=== PATIENT | female | born 1945 | race Two or more races ===

== ENCOUNTER 2020-11-23 00:18 | Inpatient (IN) | payer OTHER ==
[~2020-11-23] VITALS: Ht 167.6 cm; Wt 70.2 kg
[2020-11-23] MEDS ORDERED: MORPHINE SULFATE 4 MG/ML SYR/VIAL IV ONE ×3 (01:00→08:45)
[2020-11-23] MEDS ORDERED: ONDANSETRON HCL 4 MG/2 ML VIAL IV ONE ×3 (01:00→08:45)
[2020-11-23] MEDS ORDERED: LORazepam 0.5 MG TAB PO ONE (08:00)
[2020-11-23] MEDS ORDERED: CLIN-188 PO (08:48)
[2020-11-23] MEDS ORDERED: ALEN70TA74 PO (08:48)
[2020-11-23] MEDS ORDERED: AMLO-483 PO (08:48)
[2020-11-23] MEDS ORDERED: ROSU1TAB13 PO (08:48)
[2020-11-23] MEDS ORDERED: SULF800T8 (08:48)
[2020-11-23] MEDS ORDERED: LISI-716 PO (08:48)
[2020-11-23] MEDS ORDERED: OMEP-260 PO (08:48)
[2020-11-23 09:08] LABS: Basophils # (auto) 0.1 10 ^3/uL (0-0.2); Basophils % (auto) 0.5 % (0.0-2.0); Eosinophils # (auto) 0 10 ^3/uL (0-0.8); Hematocrit 37.7 % (36.0-46.0); Hemoglobin 12.7 g/dL (12.2-16.2); Lymphocytes # (auto) 0.6 10 ^3/uL (0.4-5.4); Lymphocytes % (auto) 4.3 % (10.0-50.0); Mean Corpuscular Hemoglobin 30.6 pg (28.0-32.0); Mean Corpuscular Hgb Conc. 33.7 g/dL (32.0-36.0); Mean Corpuscular Volume 90.7 fL (80.0-100.0); Monocytes # (auto) 0.5 10 ^3/uL (0-1.3); Monocytes % (auto) 3.8 % (0.0-12.0); Neutrophils # (auto) 12.3 10 ^3/uL (1.6-8.6); Neutrophils % (auto) 91.4 % (37.0-80.0); Nucleated Red Blood Cells % 0.1 %; Red Blood Cells 4.16 10^6/uL (4.0-5.20); White Blood Cell 13.4 10^3/uL (4.4-10.8)
[2020-11-23 09:24] LABS: Albumin 3.6 g/dL (3.4-5.0); Calcium 8.2 mg/dL (8.5-10.1); Potassium 3.8 mmol/L (3.5-5.1)
[2020-11-23 09:25] LABS: INR 1.03 (0.9-1.15); Partial Thromboplastin Time 27.5 sec (23.0-31.2)
[2020-11-23 09:28] LABS: BUN/Creatinine Ratio 27.7; Bilirubin, Total 0.9 mg/dL (0.2-1.0); Total Protein 6.7 g/dL (6.4-8.2)
[2020-11-23] MEDS ORDERED: ACETAMINOPHEN 500 MG TAB PO PRN (10:00)
[2020-11-23] MEDS ORDERED: hydrALAZINE HCL 20 MG/ML VL IV PRN (10:00)
[2020-11-23] MEDS ORDERED: ATORVASTATIN 20 MG TAB PO SCH (10:00)
[2020-11-23] MEDS ORDERED: MORPHINE SULFATE INJECTION 2 MG/ML SYRG IV PRN (10:00)
[2020-11-23] MEDS ORDERED: NITROGLYCERIN 0.4 MG SL TAB SL PRN (10:00)
[2020-11-23 10:07] LABS: Urine Bacteria NONE SEEN /hpf (None Seen); Urine Blood 2+ /uL (Negative); Urine Hyaline Cast FEW /lpf (0 - 2); Urine Specific Gravity 1.024 (1.001-1.035); Urine WBC 3 /hpf (0 - 5)
[2020-11-23 10:22] LABS: Cholesterol 150 mg/dL (< 200); HDL Cholesterol 50 mg/dL (40-59); LDL Cholesterol 81 mg/dL (< 100); Triglycerides 110 mg/dL (< 150)
[2020-11-23] MEDS: levoFLOXacin 500MG 100 ML IV SCH (10:32)
[2020-11-23] MEDS: HYDROcodone-ACET 5/325MG TAB PO PRN (10:33)
[2020-11-23] MEDS: LISINOPRIL 10 MG TAB PO SCH (10:33)
[2020-11-23] MEDS: FAMOTIDINE 20 MG TAB PO SCH (10:34)
[2020-11-23] MEDS: CLINDAMYCIN 300MG IV 50 ML IV SCH ×2 (11:45→20:43)
[2020-11-23] MEDS: ONDANSETRON HCL 4 MG/2 ML VIAL IV PRN ×2 (15:05→22:45)
[2020-11-23] MEDS: HYDROmorphone HCL 2 MG/ML VL IV PRN ×2 (15:06→22:46)
[2020-11-23 15:15] VITALS: BP 112/58
[2020-11-23 15:30] VITALS: BP 112/89
[2020-11-23 17:54] VITALS: BP 112/59
[2020-11-23] MEDS: ATORVASTATIN 20 MG TAB PO SCH (20:43)
[2020-11-23 22:00] VITALS: BP 107/59
[2020-11-24] MEDS: CLINDAMYCIN 300MG IV 50 ML IV SCH ×3 (02:52→18:12)
[2020-11-24] MEDS: HYDROmorphone HCL 2 MG/ML VL IV PRN ×4 (03:15→17:57)
[2020-11-24 05:00] VITALS: BP 103/57
[2020-11-24] MEDS: HYDROcodone-ACET 5/325MG TAB PO PRN (06:50)
[2020-11-24] MEDS: ONDANSETRON HCL 4 MG/2 ML VIAL IV PRN (08:11)
[2020-11-24 09:00] VITALS: BP 109/59
[2020-11-24] MEDS ORDERED: ENOXAPARIN SOD 40 MG/0.4 ML SYRINGE SC ONE (10:15)
[2020-11-24] MEDS: FAMOTIDINE 20 MG TAB PO SCH (10:34)
[2020-11-24] MEDS: levoFLOXacin 500MG 100 ML IV SCH (10:34)
[2020-11-24] MEDS: LISINOPRIL 10 MG TAB PO SCH (10:35)
[2020-11-24 17:20] VITALS: BP 109/56
[2020-11-24] MEDS: OXYCODONE W/ ACETAMINOPHEN 5/325MG TABLET PO PRN (20:02)
[2020-11-24] MEDS: ATORVASTATIN 20 MG TAB PO SCH (21:29)
[2020-11-24 22:00] VITALS: BP 122/62
[2020-11-25] MEDS: CLINDAMYCIN 300MG IV 50 ML IV SCH ×3 (02:29→18:40)
[2020-11-25] MEDS: HYDROmorphone HCL 2 MG/ML VL IV PRN ×3 (04:40→19:01)
[2020-11-25 05:00] VITALS: BP 110/68
[2020-11-25] MEDS: OXYCODONE W/ ACETAMINOPHEN 5/325MG TABLET PO PRN ×2 (07:28→17:43)
[2020-11-25 07:40] LABS: Basophils # (auto) 0 10 ^3/uL (0-0.2); Basophils % (auto) 0.3 % (0.0-2.0); Eosinophils # (auto) 0 10 ^3/uL (0-0.8); Eosinophils % (auto) 0.1 % (0.0-7.0); Hematocrit 34.3 % (36.0-46.0); Hemoglobin 11.9 g/dL (12.2-16.2); Lymphocytes # (auto) 1.1 10 ^3/uL (0.4-5.4); Lymphocytes % (auto) 9.4 % (10.0-50.0); Mean Corpuscular Hemoglobin 31.2 pg (28.0-32.0); Mean Corpuscular Hgb Conc. 34.6 g/dL (32.0-36.0); Monocytes # (auto) 0.9 10 ^3/uL (0-1.3); Monocytes % (auto) 7.3 % (0.0-12.0); Neutrophils % (auto) 82.9 % (37.0-80.0); Red Blood Cells 3.81 10^6/uL (4.0-5.20); Red Cell Distribution Width 13.3 % (11.8-14.3)
[2020-11-25 07:52] LABS: BUN/Creatinine Ratio 22.4; Calcium 7.8 mg/dL (8.5-10.1); Magnesium 2.4 mg/dL (1.6-2.6); Potassium 3.7 mmol/L (3.5-5.1)
[2020-11-25] MEDS: levoFLOXacin 500MG 100 ML IV SCH (10:15)
[2020-11-25] MEDS: FAMOTIDINE 20 MG TAB PO SCH (10:15)
[2020-11-25] MEDS: ENOXAPARIN SOD 40 MG/0.4 ML SYRINGE SC SCH (10:16)
[2020-11-25] MEDS: LISINOPRIL 10 MG TAB PO SCH (10:16)
[2020-11-25 13:00] VITALS: BP 113/59
[2020-11-25 17:00] VITALS: BP 120/65
[2020-11-25] MEDS: ATORVASTATIN 20 MG TAB PO SCH (21:23)
[2020-11-25 22:00] VITALS: BP 109/70
[2020-11-26] MEDS: HYDROmorphone HCL 2 MG/ML VL IV PRN ×4 (01:39→19:32)
[2020-11-26] MEDS: CLINDAMYCIN 300MG IV 50 ML IV SCH ×2 (03:26→10:59)
[2020-11-26] MEDS: OXYCODONE W/ ACETAMINOPHEN 5/325MG TABLET PO PRN ×3 (04:33→17:27)
[2020-11-26 05:00] VITALS: BP 123/74
[2020-11-26] MEDS ORDERED: FLEET ENEMA(ADULT) 135 ML PR ONE (08:00)
[2020-11-26] MEDS ORDERED: LACTULOSE 20Gm/30ML SOLN PO ONE (08:00)
[2020-11-26 08:30] VITALS: BP 132/69
[2020-11-26] MEDS: levoFLOXacin 500MG 100 ML IV SCH (08:46)
[2020-11-26] MEDS: FAMOTIDINE 20 MG TAB PO SCH (08:55)
[2020-11-26] MEDS: ENOXAPARIN SOD 40 MG/0.4 ML SYRINGE SC SCH (08:55)
[2020-11-26] MEDS: LISINOPRIL 10 MG TAB PO SCH (08:58)
[2020-11-26] MEDS ORDERED: DOCUSATE SOD 100 MG CAP PO SCH (10:00)
[2020-11-26 12:30] VITALS: BP 125/68
[2020-11-26 17:00] VITALS: BP 132/71
[2020-11-27] MEDS ORDERED: LACTULOSE 20Gm/30ML SOLN PO SCH (10:00)
== END 2020-11-26 19:40 | disposition short-term general hospital (02) | DRG 536 ==
LOC: EDBD 00:18 → ER 00:20 → TELE 09:51 → TELE-EAST 15:02
PROVIDERS: ADMIT Nurse Practitioner Acute Care; ATTEND Internal Medicine Geriatric Medicine
DX: S32.401A Unspecified fracture of right acetabulum, initial encounter for closed fracture (principal); S32.591A Other specified fracture of right pubis, initial encounter for closed fracture; I10 Essential (primary) hypertension; M81.0 Age-related osteoporosis without current pathological fracture; D72.829 Elevated white blood cell count, unspecified; E78.5 Hyperlipidemia, unspecified; K59.00 Constipation, unspecified; M19.90 Unspecified osteoarthritis, unspecified site; Z20.822 Contact with and (suspected) exposure to COVID-19; W18.39XA Other fall on same level, initial encounter; Y93.89 Activity, other specified; Z88.0 Allergy status to penicillin; Y92.89 Other specified places as the place of occurrence of the external cause; Y99.8 Other external cause status
CPT/HCPCS: 36415; 71045; 72192; 73502; 80048; 80053; 80061; 81001; 83735; 84443; 85025; 85610; 85730; 86850; 86900; 86901; 87040; 87426; 93005; 96365; 96375; 96376; G0378; J1956; J2405; J3490

== ENCOUNTER 2021-01-03 23:40 | Inpatient (IN) | payer OTHER ==
[~2021-01-03] VITALS: Ht 167.6 cm; Wt 68.0 kg
[~2021-01-03 23:40] MED LIST: ALEN70TA74 PO; AMLO-483 PO; CLIN-188 PO; LISI-716 PO; OMEP-260 PO; ROSU1TAB13 PO; SULF800T8
[2021-01-04 01:02] LABS: Basophils # (auto) 0 10 ^3/uL (0-0.2); Basophils % (auto) 0.4 % (0.0-2.0); Eosinophils # (auto) 0.5 10 ^3/uL (0-0.8); Eosinophils % (auto) 4.8 % (0.0-7.0); Hematocrit 29.9 % (36.0-46.0); Hemoglobin 10.6 g/dL (12.2-16.2); Lymphocytes # (auto) 1.3 10 ^3/uL (0.4-5.4); Mean Corpuscular Hemoglobin 31.9 pg (28.0-32.0); Mean Corpuscular Hgb Conc. 35.3 g/dL (32.0-36.0); Mean Corpuscular Volume 90.4 fL (80.0-100.0); Monocytes # (auto) 1.2 10 ^3/uL (0-1.3); Monocytes % (auto) 10.4 % (0.0-12.0); Neutrophils % (auto) 72.4 % (37.0-80.0); Red Blood Cells 3.31 10^6/uL (4.0-5.20); Red Cell Distribution Width 15.1 % (11.8-14.3); White Blood Cell 11.1 10^3/uL (4.4-10.8)
[2021-01-04 01:15] LABS: Albumin 3.2 g/dL (3.4-5.0); BUN/Creatinine Ratio 21.6; Calcium 8.2 mg/dL (8.5-10.1)
[2021-01-04 01:18] LABS: Bilirubin, Total 0.7 mg/dL (0.2-1.0); Total Protein 5.9 g/dL (6.4-8.2)
[2021-01-04 01:29] LABS: Potassium 2.5 mmol/L (3.5-5.1)
[2021-01-04] MEDS ORDERED: POTASSIUM CHL 20 Meq TABLET PO ONE (01:30)
[2021-01-04] MEDS: POTASSIUM CHL 20MEQ/100ML 100 ML IV SCH ×2 (01:57→04:12)
[2021-01-04] MEDS ORDERED: SODIUM CHLORIDE 0.9% 1,000 ML IV ONE (02:30)
[2021-01-04] MEDS ORDERED: IOHEXOL 300 MG/ML 100ML BOTTLE IJ ONE (02:45)
[2021-01-04] MEDS ORDERED: metroNIDAZOLE 500MG/100ML 100 ML IV ONE (05:30)
[2021-01-04] MEDS ORDERED: CIPROFLOXACIN 400MG/200ML 200 ML IV ONE (05:30)
[2021-01-04] MEDS ORDERED: HYDROcodone-ACET 5/325MG TAB PO PRN (06:00)
[2021-01-04] MEDS ORDERED: ONDANSETRON HCL 4 MG/2 ML VIAL IV PRN (06:00)
[2021-01-04] MEDS ORDERED: LOPERAMIDE 1 mg/7.5ml ORAL soln PO PRN (06:00)
[2021-01-04] MEDS ORDERED: MORPHINE SULF INJ 2 MG/ML SYRINGE 1ML IV PRN (06:00)
[2021-01-04] MEDS ORDERED: NITROGLYCERIN 0.4 MG SL TAB SL PRN (06:00)
[2021-01-04] MEDS ORDERED: D5W/SOD CHLO 0.9% 1,000 ML IV SCH (06:00)
[2021-01-04] MEDS: metroNIDAZOLE 500MG/100ML 100 ML IV SCH ×3 (06:40→22:03)
[2021-01-04 07:25] LABS: Basophils # (auto) 0.1 10 ^3/uL (0-0.2); Basophils % (auto) 0.6 % (0.0-2.0); Eosinophils # (auto) 0.4 10 ^3/uL (0-0.8); Eosinophils % (auto) 4.4 % (0.0-7.0); Hemoglobin 10.1 g/dL (12.2-16.2); Lymphocytes # (auto) 1.2 10 ^3/uL (0.4-5.4); Lymphocytes % (auto) 12.5 % (10.0-50.0); Mean Corpuscular Hemoglobin 31.4 pg (28.0-32.0); Mean Corpuscular Hgb Conc. 34.8 g/dL (32.0-36.0); Mean Corpuscular Volume 90.1 fL (80.0-100.0); Monocytes # (auto) 0.9 10 ^3/uL (0-1.3); Monocytes % (auto) 9.5 % (0.0-12.0); Neutrophils # (auto) 6.8 10 ^3/uL (1.6-8.6); Red Blood Cells 3.22 10^6/uL (4.0-5.20); Red Cell Distribution Width 14.9 % (11.8-14.3); White Blood Cell 9.3 10^3/uL (4.4-10.8)
[2021-01-04 07:51] LABS: Albumin 2.7 g/dL (3.4-5.0)
[2021-01-04 07:55] LABS: BUN/Creatinine Ratio 11.1; Bilirubin, Total 0.6 mg/dL (0.2-1.0); Total Protein 5.6 g/dL (6.4-8.2)
[2021-01-04 08:07] LABS: Potassium 2.8 mmol/L (3.5-5.1)
[2021-01-04] MEDS ORDERED: POTASSIUM EFFERVESENT TAB 25 MEQ PO ONE (08:15)
[2021-01-04] MEDS: FAMOTIDINE (10MG/ML) 2ML VL IV SCH ×2 (08:35→22:03)
[2021-01-04] MEDS: MULTIPLE VITAMIN TAB PO SCH (08:35)
[2021-01-04] MEDS: ZINC SULFATE 220mg CAP or TAB PO SCH (08:36)
[2021-01-04] MEDS: ASCORBIC ACID 500 MG TAB PO SCH ×2 (08:36→22:03)
[2021-01-04] MEDS: ENOXAPARIN SOD 30 MG/0.3 ML SYRINGE SC SCH (08:37)
[2021-01-04] MEDS ORDERED: PROMETHAZINE HCL 25 MG/ML 1ML IV ONE (09:30)
[2021-01-04] MEDS ORDERED: LORazepam 2MG/ML-1ML VIAL IV ONE (09:30)
[2021-01-04] MEDS: MAGNESIUM SULFATE 1GM/100ML 100 ML IV SCH ×2 (09:55→12:04)
[2021-01-04] MEDS: D5W/SOD CHL 0.45%/KCL 20MEQ 1,000 ML IV SCH (14:42)
[2021-01-04] MEDS: VANCOMYCIN HCL 125MG/5ML ORAL SOL PO SCH ×2 (18:00→22:04)
[2021-01-04] MEDS ORDERED: ACETAMINOPHEN 325 MG TAB PO ONE (18:15)
[2021-01-04 19:30] VITALS: BP 103/55
[2021-01-04 20:09] LABS: Urine Bacteria NONE SEEN /hpf (None Seen); Urine Blood TRACE /uL (Negative); Urine Mucus FEW (None Seen); Urine Specific Gravity 1.022 (1.001-1.035); Urine WBC 2 /hpf (0 - 5)
[2021-01-04 22:16] VITALS: BP 104/59
[2021-01-05] MEDS: D5W/SOD CHL 0.45%/KCL 20MEQ 1,000 ML IV SCH ×2 (02:20→18:57)
[2021-01-05 05:07] LABS: Basophils # (auto) 0.1 10 ^3/uL (0-0.2); Basophils % (auto) 0.9 % (0.0-2.0); Eosinophils # (auto) 0.6 10 ^3/uL (0-0.8); Eosinophils % (auto) 5.6 % (0.0-7.0); Hematocrit 29.7 % (36.0-46.0); Hemoglobin 10.4 g/dL (12.2-16.2); Lymphocytes # (auto) 1.4 10 ^3/uL (0.4-5.4); Lymphocytes % (auto) 13.7 % (10.0-50.0); Mean Corpuscular Hemoglobin 31.5 pg (28.0-32.0); Mean Corpuscular Hgb Conc. 34.9 g/dL (32.0-36.0); Mean Corpuscular Volume 90.2 fL (80.0-100.0); Monocytes # (auto) 0.9 10 ^3/uL (0-1.3); Monocytes % (auto) 8.8 % (0.0-12.0); Neutrophils # (auto) 7.1 10 ^3/uL (1.6-8.6); Red Blood Cells 3.29 10^6/uL (4.0-5.20); Red Cell Distribution Width 15.1 % (11.8-14.3)
[2021-01-05 05:13] VITALS: BP 107/67
[2021-01-05 05:28] LABS: Albumin 2.8 g/dL (3.4-5.0); BUN/Creatinine Ratio 6.3; Calcium 7.7 mg/dL (8.5-10.1); Magnesium 2.2 mg/dL (1.6-2.6)
[2021-01-05 05:31] LABS: Bilirubin, Total 0.6 mg/dL (0.2-1.0); Total Protein 5.4 g/dL (6.4-8.2)
[2021-01-05] MEDS: metroNIDAZOLE 500MG/100ML 100 ML IV SCH ×3 (06:07→21:46)
[2021-01-05] MEDS: VANCOMYCIN HCL 125MG/5ML ORAL SOL PO SCH ×4 (06:07→21:46)
[2021-01-05 06:38] LABS: Potassium 2.9 mmol/L (3.5-5.1)
[2021-01-05] MEDS ORDERED: POTASSIUM CHL 20 Meq TABLET PO ONE ×3 (07:00→15:45)
[2021-01-05 09:00] VITALS: BP 105/62
[2021-01-05] MEDS: FAMOTIDINE (10MG/ML) 2ML VL IV SCH ×2 (10:23→21:45)
[2021-01-05] MEDS: MULTIPLE VITAMIN TAB PO SCH (10:24)
[2021-01-05] MEDS: ASCORBIC ACID 500 MG TAB PO SCH ×2 (10:24→21:45)
[2021-01-05] MEDS: ZINC SULFATE 220mg CAP or TAB PO SCH (10:24)
[2021-01-05] MEDS: ENOXAPARIN SOD 30 MG/0.3 ML SYRINGE SC SCH (10:24)
[2021-01-05 13:00] VITALS: BP 106/59
[2021-01-05 17:00] VITALS: BP 105/58
[2021-01-05] MEDS: ACETAMINOPHEN 325 MG TAB PO PRN (21:45)
[2021-01-05 22:07] VITALS: BP 120/74
[2021-01-06] MEDS: ACETAMINOPHEN 325 MG TAB PO PRN ×3 (04:43→23:26)
[2021-01-06 05:21] VITALS: BP 119/73
[2021-01-06] MEDS: metroNIDAZOLE 500MG/100ML 100 ML IV SCH ×3 (05:26→21:15)
[2021-01-06] MEDS: D5W/SOD CHL 0.45%/KCL 20MEQ 1,000 ML IV SCH ×2 (05:27→18:05)
[2021-01-06] MEDS: VANCOMYCIN HCL 125MG/5ML ORAL SOL PO SCH ×4 (05:27→21:15)
[2021-01-06 07:03] LABS: Basophils # (auto) 0.1 10 ^3/uL (0-0.2); Eosinophils # (auto) 0.4 10 ^3/uL (0-0.8); Eosinophils % (auto) 6.2 % (0.0-7.0); Hematocrit 29.5 % (36.0-46.0); Lymphocytes # (auto) 1.3 10 ^3/uL (0.4-5.4); Lymphocytes % (auto) 22.1 % (10.0-50.0); Mean Corpuscular Hemoglobin 31.7 pg (28.0-32.0); Mean Corpuscular Hgb Conc. 34.1 g/dL (32.0-36.0); Mean Corpuscular Volume 93.1 fL (80.0-100.0); Monocytes # (auto) 0.6 10 ^3/uL (0-1.3); Monocytes % (auto) 10.2 % (0.0-12.0); Neutrophils # (auto) 3.5 10 ^3/uL (1.6-8.6); Neutrophils % (auto) 60.5 % (37.0-80.0); Nucleated Red Blood Cells % 0.1 %; Red Blood Cells 3.17 10^6/uL (4.0-5.20); Red Cell Distribution Width 15.3 % (11.8-14.3); White Blood Cell 5.8 10^3/uL (4.4-10.8)
[2021-01-06 07:27] LABS: Potassium 3.9 mmol/L (3.5-5.1)
[2021-01-06 07:45] LABS: BUN/Creatinine Ratio 17.6; Calcium 7.9 mg/dL (8.5-10.1); Magnesium 2.3 mg/dL (1.6-2.6)
[2021-01-06 08:48] VITALS: BP 114/71
[2021-01-06] MEDS: FAMOTIDINE (10MG/ML) 2ML VL IV SCH (09:34)
[2021-01-06] MEDS: ASCORBIC ACID 500 MG TAB PO SCH ×2 (09:35→21:15)
[2021-01-06] MEDS: ZINC SULFATE 220mg CAP or TAB PO SCH (09:35)
[2021-01-06] MEDS: ENOXAPARIN SOD 30 MG/0.3 ML SYRINGE SC SCH (09:35)
[2021-01-06] MEDS: MULTIPLE VITAMIN TAB PO SCH (09:35)
[2021-01-06 13:00] VITALS: BP 117/70
[2021-01-06 16:42] VITALS: BP 131/75
[2021-01-06 22:00] VITALS: BP 121/80
[2021-01-07 05:00] VITALS: BP 124/73
[2021-01-07] MEDS: VANCOMYCIN HCL 125MG/5ML ORAL SOL PO SCH ×2 (05:15→11:48)
[2021-01-07] MEDS: D5W/SOD CHL 0.45%/KCL 20MEQ 1,000 ML IV SCH (05:15)
[2021-01-07] MEDS: metroNIDAZOLE 500MG/100ML 100 ML IV SCH (05:15)
[2021-01-07 05:32] LABS: Basophils # (auto) 0.1 10 ^3/uL (0-0.2); Basophils % (auto) 1.2 % (0.0-2.0); Eosinophils # (auto) 0.5 10 ^3/uL (0-0.8); Eosinophils % (auto) 7.8 % (0.0-7.0); Hemoglobin 11.1 g/dL (12.2-16.2); Lymphocytes # (auto) 1.5 10 ^3/uL (0.4-5.4); Lymphocytes % (auto) 25.6 % (10.0-50.0); Mean Corpuscular Hemoglobin 31.7 pg (28.0-32.0); Mean Corpuscular Hgb Conc. 34.6 g/dL (32.0-36.0); Mean Corpuscular Volume 91.6 fL (80.0-100.0); Monocytes # (auto) 0.6 10 ^3/uL (0-1.3); Monocytes % (auto) 10.1 % (0.0-12.0); Neutrophils # (auto) 3.2 10 ^3/uL (1.6-8.6); Neutrophils % (auto) 55.3 % (37.0-80.0); Nucleated Red Blood Cells % 2.1 %; Red Blood Cells 3.49 10^6/uL (4.0-5.20); Red Cell Distribution Width 15.2 % (11.8-14.3); White Blood Cell 5.9 10^3/uL (4.4-10.8)
[2021-01-07 05:54] LABS: Calcium 8.5 mg/dL (8.5-10.1); Magnesium 2.2 mg/dL (1.6-2.6); Potassium 3.8 mmol/L (3.5-5.1)
[2021-01-07 09:00] VITALS: BP 113/69
[2021-01-07] MEDS: ENOXAPARIN SOD 30 MG/0.3 ML SYRINGE SC SCH (09:01)
[2021-01-07] MEDS: ZINC SULFATE 220mg CAP or TAB PO SCH (09:01)
[2021-01-07] MEDS: MULTIPLE VITAMIN TAB PO SCH (09:01)
[2021-01-07] MEDS: ASCORBIC ACID 500 MG TAB PO SCH (09:01)
[2021-01-07] MEDS: ACETAMINOPHEN 325 MG TAB PO PRN (09:02)
[2021-01-07 13:00] VITALS: BP 116/71
== END 2021-01-07 15:55 | disposition home or self-care (01) | DRG 371 ==
LOC: ER 23:40 → EDBD 23:40 → TELE 01-04 05:58 → TELE-CENTR 01-04 18:23
PROVIDERS: ADMIT Nurse Practitioner Family; ATTEND Internal Medicine Geriatric Medicine
DX: A04.72 Enterocolitis due to Clostridium difficile, not specified as recurrent (principal); G93.41 Metabolic encephalopathy; N17.9 Acute kidney failure, unspecified; E86.0 Dehydration; E87.6 Hypokalemia; I10 Essential (primary) hypertension; E78.5 Hyperlipidemia, unspecified; M19.90 Unspecified osteoarthritis, unspecified site; Z90.710 Acquired absence of both cervix and uterus; Z88.0 Allergy status to penicillin; Z20.822 Contact with and (suspected) exposure to COVID-19
CPT/HCPCS: 36415; 74177; 80048; 80053; 81001; 83735; 84132; 85025; 87040; 87045; 87081; 87426; 87427; 87493; 93005; 96361; 96365; 96366; 96367; 96368; 96372; 96375; 97163; G0378; J3480; J3490

== ENCOUNTER 2021-08-25 09:51 | Emergency (ER) | payer OTHER ==
[~2021-08-25] VITALS: Ht 165.1 cm; Wt 65.8 kg
[2021-08-25 10:35] LABS: Basophils # (auto) 0 10 ^3/uL (0-0.2); Basophils % (auto) 0.2 % (0.0-2.0); Eosinophils # (auto) 0 10 ^3/uL (0-0.8); Hematocrit 43.8 % (36.0-46.0); Hemoglobin 15.2 g/dL (12.2-16.2); Lymphocytes # (auto) 0.2 10 ^3/uL (0.4-5.4); Mean Corpuscular Hemoglobin 30.4 pg (28.0-32.0); Mean Corpuscular Hgb Conc. 34.7 g/dL (32.0-36.0); Mean Corpuscular Volume 87.5 fL (80.0-100.0); Monocytes # (auto) 0.4 10 ^3/uL (0-1.3); Monocytes % (auto) 4.6 % (0.0-12.0); Neutrophils # (auto) 7.1 10 ^3/uL (1.6-8.6); Neutrophils % (auto) 92.2 % (37.0-80.0); Red Cell Distribution Width 14.1 % (11.8-14.3); White Blood Cell 7.7 10^3/uL (4.4-10.8)
[2021-08-25 10:51] LABS: Albumin 4.1 g/dL (3.4-5.0); Calcium 9.1 mg/dL (8.5-10.1); Potassium 3.4 mmol/L (3.5-5.1)
[2021-08-25 10:54] LABS: BUN/Creatinine Ratio 24.4; Bilirubin, Total 1.7 mg/dL (0.2-1.0); Total Protein 7.7 g/dL (6.4-8.2)
[2021-08-25] MEDS ORDERED: ALUM & MAG HYDROX-SIMETH LIQ(MAALOX) 30 ML PO ONE (11:15)
[2021-08-25] MEDS ORDERED: ONDANSETRON ODT 4 MG TAB PO ONE (11:15)
[2021-08-25] MEDS ORDERED: FAMOTIDINE 20 MG TAB PO ONE (11:15)
[2021-08-25] MEDS ORDERED: LIDOCAINE VISCOUS 2% 15ML UD PO ONE (11:15)
[2021-08-25 12:02] LABS: Urine Bacteria NONE SEEN /hpf (None Seen); Urine Blood TRACE /uL (Negative); Urine Mucus FEW (None Seen); Urine Specific Gravity 1.034 (1.001-1.035); Urine WBC 2 /hpf (0 - 5)
[2021-08-25 12:05] LABS: Magnesium 2.2 mg/dL (1.6-2.6)
[2021-08-25 13:31] VITALS: BP 150/86
[2021-08-25] MEDS ORDERED: ONDA-144 PO (13:55)
== END 2021-08-25 15:41 | disposition home or self-care (01) ==
LOC: ER 09:51
DX: R11.2 Nausea with vomiting, unspecified (principal); R10.11 Right upper quadrant pain; E78.5 Hyperlipidemia, unspecified; I10 Essential (primary) hypertension; Z90.710 Acquired absence of both cervix and uterus; Z88.0 Allergy status to penicillin
CPT/HCPCS: 36415; 71046; 76705; 80053; 81001; 83735; 84484; 85025; 93005; 99285; Q0162

== ENCOUNTER 2025-02-07 13:15 | Inpatient (IN) | payer OTHER ==
[~2025-02-07] VITALS: Ht 167.6 cm; Wt 70.2 kg
[~2025-02-07 13:15] MED LIST changes: -AMLO-483 PO; +AMLO1TAB21 PO; -LISI-716 PO; +LISI10TA34 PO; -OMEP-260 PO; +OMEP1CAP70 PO; +ONDA-144 PO; +ROSU10TA64 PO; -ROSU1TAB13 PO; +SULF1TAB75; -SULF800T8
--- NOTE | 2025-02-07 13:28 | ECG ---
[facility] Test Date: 2025-02-07 Test Time: 13:26:57 Pat Name: NAYANA CALDERÓN Department: ED Room: 0281T Gender: F Field Talent Qualification Specialist: LUIS : 1945 Requested By: CHELLY DENNY Order Number: [id number] Reading MD: Jermaine Marion Measurements Intervals [place] Rate: 84 P: 76 HI: 146 QRS: 59 QRSD: 94 T: 28 QT: 375 QTc: 444 Interpretive Statements Sinus rhythm Minimal ST depression, anterolateral leads Electronically Signed On 02-10-2025 13:23:49 PDT by Jermaine Marion Please click the below link to view image of tracing.
--- NOTE | 2025-02-07 14:27 | ED.PDOC ---
History of Present Illness HPI Comments 79-year-old female presents to the ER with prior medical history of Arthritis, High Lipids, HTN: Surgical history of hysterectomy and the chief complaint of dizziness. Patient reports on having generalized body weakness, fatigue and lightheadedness for two weeks. Patient states that worsens when standing. Denies chills, fever, N/V/D, SOB, CP. No other associated symptoms, modifiers, recent injuries or sick contacts present at this time. Chief Complaint: General Weakness Time Seen by MD: 14:20 Primary Care Provider: lefty Reviewed Notes: Nurses Notes, Medications, Allergies Allergies: Coded Allergies: Penicillins (Verified Allergy, Unknown, 11/23/20) Home Meds Active Scripts Ondansetron (Zofran) 4 Mg Tab, 4 MG PO TID PRN for 3 Days, #9 TAB Prov:TONI ANGELES MD 08/25/21 Reported Medications Clindamycin HCl (Clindamycin Hydrochloride) 150 Mg Cap, 3 PO TID 11/23/20 Sulfamethoxazole W/Trimethopri (Smz-Tmp Ds) 1 Tab Tab 11/23/20 Omeprazole (Omeprazole Dr) 20 Mg Cap, 1 CAP PO DAILYPRN 11/23/20 Rosuvastatin Calcium (Rosuvastatin Calcium) 10 Mg Tab, 1 TAB PO DAILYPRN 11/23/20 Amlodipine Besylate (Amlodipine Besylate) 2.5 Mg Tab, 1 TAB PO DAILYPRN 11/23/20 Lisinopril (Lisinopril) 10 Mg Tab, 1 TAB PO DAILYPRN 11/23/20 Alendronate Sodium (Alendronate Sodium) 70 Mg Tab, 1 TAB PO QWEEKLY 11/23/20 Information Source: Patient Mode of Arrival: Ambulatory Severity: Moderate Timing: Weeks Duration: Since onset Prehospital treatment: None Past Medical History PAST MEDICAL HISTORY: Arthritis, High Lipids, HTN Surgical History: Hysterectomy RESEARCH SUBJECT History: No Pertinent RESEARCH SUBJECT History Family History Family History: Reviewed,noncontributory to illness, Unknown Social History Smoker: Non-Smoker Alcohol: Denies ETOH Use Drugs: Denies Drug Use Lives In: Home Constitutional: reports: weakness; denies: chills, diaphoresis, fatigue, fever, malaise, sweats, others EENTM: denies: blurred vision, double vision, ear bleeding, ear discharge, ear drainage, ear pain, ear ringing, eye pain, eye redness, hearing loss, mouth pain, mouth swelling, nasal discharge, nose bleeding, nose congestion, nose pain, photophobia, tearing, throat pain, throat swelling, voice changes, others Respiratory: denies: cough, hemoptysis, orthopnea, SOB at rest, shortness of breath, SOB with excertion, stridor, wheezing, others Cardiovascular: denies: chest pain, dizzy spells, diaphoresis, Dyspnea on exertion, edema, irregular heart beat, left arm pain, lightheadedness, palpitations, PND, syncope, others Gastrointestinal: denies: abdomen distended, abdominal pain, blood streaked bowels, constipated, diarrhea, dysphagia, difficulty swallowing, hematemesis, melena, nausea, poor appetite, poor fluid intake, rectal bleeding, rectal pain, vomiting, others Genitourinary: denies: abnormal vagina bleeding, burning, dyspareunia, dysuria, flank pain, frequency, hematuria, incontinence, pain, , vagina discharge, urgency, others Neurological: reports: dizziness; denies: fainting, headache, left sided numbness, left sided weakness, numbness, paresthesia, pre-existing deficit, right sided numbness, right sided weakness, seizure, speech problems, tingling, tremors, weakness, others Musculoskeletal: denies: back pain, gout, joint pain, joint swelling, muscle pain, muscle stiffness, neck pain, others Integumetry: denies: bruises, change in color, change in hair/nails, dryness, laceration, lesions, lumps, rash, wounds, others Allergic/Immunocompromised: denies: Difficulty Healing, Frequent Infections, Hives, Itching, others Hematologic/Lymphatic: denies: anemia, blood clots, easy bleeding, easy bruising, swollen glands, others Endocrine: denies: excessive hunger, excessive sweating, excessive thirst, excessive urination, flushing, intolerance to cold, intolerance to heat, unexplained weight gain, unexplained weight loss, others Psychiatric: denies: anxiety, bipolar disorder, depression, hopeless, panic disorder, schizophrenia, sleepless, suicidal, others All Other Systems: Reviewed and Negative Physical Exam General Appearance: No Apparent Distress, Normal HEENT: Normal ENT Inspection, Pharynx Normal, TMs Normal Neck: Full Range of Motion, Non-Tender, Normal, Normal Inspection Respiratory: Chest Non-Tender, Lungs Clear, No Accessory Muscle Use, No Respiratory Distress, Normal Breath Sounds Cardiovascular: No Edema, No JVD, No Murmur, No Gallop, Normal Peripheral Pulses, Regular Rate/Rhythm Breast Exam: Deferred Gastrointestinal: No Organomegaly, Non Tender, No Pulsatile Mass, Normal Bowel Sounds, Soft Genitalia: Deferred Pelvic: Deferred Rectal: Deferred Extremities: No calf tenderness, Normal capillary refill, Normal inspection, Normal range of motion, Non-tender, No pedal edema Musculoskeletal : Apperance: Normal Neurologic: Alert, livestock haulier II-XII nml as Tested, No Motor Deficits, Normal Affect, Normal Mood, No Sensory Deficits Cerebellar Function: Normal Reflexes: Normal Skin: Dry, Normal Color, Warm Lymphatic: No Adenopathy Was a procedure done? Was a procedure done?: No EKG EKG : Pulse Rate (adult): 84 Loraine: Normal Cardiac Rhythm: NSR Block: None Hypertrophy: None ST: Normal Differential Dx Considerations may include: Hypertensive urgency, infectious etiology, urinary tract infection, viral syndrome, cardiac arrhythmia X-Ray, Labs, Meds, VS Vital Signs Date Time Temp Pulse Resp B/P (MAP) Pulse Ox O2 Delivery O2 Flow Rate FiO2 02/07/25 14:58 84 02/07/25 13:26 84 02/07/25 13:17 98.4 87 20 155/99 96 98.4 Lab Test 02/07/25 16:08 02/07/25 15:24 02/07/25 14:46 Range/Units Troponin I High Sensitivity < 3 L < 3 L </=34 ng/L Urine Color Yellow Yellow Urine Clarity Clear Clear Urine pH 5.5 5.0-9.0 Urine Specific Dr[place]coll 1.023 1.001-1.035 Urine Protein Negative Negative Urine Ketones Trace Negative Urine Blood Negative Negative /uL Urine Nitrite Negative Negative Urine Bilirubin Negative Negative Urine Urobilinogen Normal Negative mg/dL Urine Leukocyte Esterase Negative Negative /uL Urine RBC 3 0 - 4 /hpf Urine Microscopic WBC 2 0-5 /HPF Urine Squamous Epithelial Cells Few <5 /hpf Urine Bacteria None seen None Seen /hpf Urine Mucus Few None Seen Urine Glucose Normal Normal mg/dL White Blood Count 5.5 4.4-10.8 10^3/uL Red Blood Count 5.04 4.0-5.20 10^6/uL Hemoglobin 15.5 12.2-16.2 g/dL Hematocrit 45.7 36.0-46.0 % Mean Corpuscular Volume 90.5 80.0-100.0 fL Mean Corpuscular Hemoglobin 30.7 28.0-32.0 pg Mean Corpuscular Hemoglobin Concent 34.0 32.0-36.0 g/dL Red Cell Distribution Width 13.0 11.8-14.3 % Platelet Count 310 140-450 10^3/uL Mean Platelet Volume 8.1 6.9-10.8 fL Neutrophils (%) (Auto) 66.6 37.0-80.0 % Lymphocytes (%) (Auto) 24.3 10.0-50.0 % Monocytes (%) (Auto) 7.4 0.0-12.0 % Eosinophils (%) (Auto) 0.8 0.0-7.0 % Basophils (%) (Auto) 0.9 0.0-2.0 % Neutrophils # (Auto) 3.7 1.6-8.6 10 ^3/uL Lymphocytes # (Auto) 1.3 0.4-5.4 10 ^3/uL Monocytes # (Auto) 0.4 0-1.3 10 ^3/uL Eosinophils # (Auto) 0 0-0.8 10 ^3/uL Basophils # (Auto) 0.1 0-0.2 10 ^3/uL Nucleated Red Blood Cells 0.1 % Sodium Level 139 136-145 mmol/L Potassium Level 3.9 3.5-5.1 mmol/L Chloride Level 102 98-107 mmol/L Carbon Dioxide Level 29 20-31 mmol/L Anion Gap 8 5-15 Blood Urea Nitrogen 11 9-23 mg/dL Creatinine 0.78 0.550-1.02 mg/dL Glomerular Filtration Rate Calc 77 >90 mL/min BUN/Creatinine Ratio 14.1 10.0-20.0 Serum Glucose 98 74-106 mg/dL Calcium Level 10.1 8.7-10.4 mg/dL Time of 1ST Reevaluation: 14:50 Reevaluation 1ST: Unchanged Patient Education/Counseling: Diagnosis, Treatment, Prognosis Family Education/Counseling: No Family Present SEPSIS Sepsis Screen Date sepsis recognized/suspect: Feb 07, 2025 Time Sepsis recognized/suspect: 1316 Recent Procedure: No On Antibiotic Therapy: No Respiratory Rate >20: No Heart Rate >90: No Temp<36 C (96.8 F) or >38.3 C: No SBP <90 or MAP <65 mmHG: No New Acute Mental Status Change: No Is the patient on CPAP, BIPAP,: No Physician Orders Electrocardigram (02/07/25 14:23) Electrocardigram (02/07/25 16:23) Chest Portable (02/07/25 14:24) Troponin-I Hs (02/07/25 17:24) Vital Signs Date Time Temp Pulse Resp B/P (MAP) Pulse Ox O2 Delivery O2 Flow Rate FiO2 02/07/25 14:58 84 02/07/25 13:26 84 02/07/25 13:17 98.4 87 20 155/99 96 98.4 Laboratory Tests Test 02/07/25 14:46 White Blood Count 5.5 10^3/uL (4.4-10.8) Departure 1 Departure Time of Disposition: 17:26 (Patient with a near syncopal episode. Patient is feeling really weak. We will discharge patient home with outpatient follow up) Impression: Primary Impression: Near syncope Additional Impression: Generalized weakness Disposition: ADMITTED INPATIENT Admit to: Med Surg Condition: Serious Critical Care Note Critical Care Time?: No Stability Stability form required: No I personally scribed for CHELLY DENNY MD ([email or web address]) on 02/07/25 at 14:27. Electronically submitted by Antwon Lockhart ([employer]). I personally scribed for CHELLY DENNY MD ([email or web address]) on 02/07/25 at 14:58. Electronically submitted by Antwon Lockhart ([employer]). CHELLY DENNY MD Feb 07, 2025 14:27
--- NOTE | 2025-02-07 14:49 | DVH ---
XY CHEST PORTABLE, HISTORY: chest pain COMPARISON: CHEST TWO VIEWS ROUTINE on DOS: 08/25/21, CHEST PORTABLE on DOS: 11/23/20 CHEST TWO VIEWS ROUTINE on DOS: 08/25/21, CHEST PORTABLE on DOS: 11/23/20 TECHNICAL DATA: 1 view of the chest was obtained. FINDINGS: Lines and tubes: None Cardiomediastinal silhouette: normal Pulmonary vasculature: normal Lung expansion: normal Lung airspace: normal Lung interstitium: normal Pleura: normal Pneumothorax: no Bones: Unremarkable Other: no IMPRESSION: No acute intrathoracic abnormality.
[2025-02-07 14:57] LABS: Hematocrit 45.7 % (36.0-46.0); Hemoglobin 15.5 g/dL (12.2-16.2); Mean Corpuscular Hemoglobin 30.7 pg (28.0-32.0); Mean Corpuscular Volume 90.5 fL (80.0-100.0); Nucleated Red Blood Cells % 0.1 %
[2025-02-07 15:06] LABS: Chloride 102 mmol/L (98-107); Potassium 3.9 mmol/L (3.5-5.1); Sodium 139 mmol/L (136-145)
[2025-02-07 15:07] LABS: Anion Gap 8 (5-15); Carbon Dioxide 29 mmol/L (20-31)
[2025-02-07 15:08] LABS: Calcium 10.1 mg/dL (8.7-10.4)
[2025-02-07 15:12] LABS: BUN/Creatinine Ratio 14.1 (10.0-20.0); Blood Urea Nitrogen 11 mg/dL (9-23); Glucose 98 mg/dL (74-106)
[2025-02-07 16:05] LABS: Urine Protein, UAD Negative (Negative)
[2025-02-07] MEDS: PSEUDOEPHEDRINE HCL 30 MG TAB PO ONE (18:20)
[2025-02-07] MEDS: ACETAMINOPHEN 325 MG TAB PO ONE (18:20)
[2025-02-07 18:40] VITALS: PULSE 89; RESP 19; O2SAT 98
[2025-02-07 20:00] VITALS: PULSE 81; RESP 18; O2SAT 98
[2025-02-08] VITALS (13 sets, daily range): BP systolic 109–164; BP diastolic 61–91; PULSE 56–90; RESP 16–18; TEMP 97.5–98.3; O2SAT 92–99
[2025-02-08] MEDS: DOCUSATE SOD 100 MG CAP PO ONE (01:49)
[2025-02-08] MEDS: ACETAMINOPHEN 500 MG TAB or CAP PO ONE (01:50)
--- NOTE | 2025-02-08 02:48 | DVHHPRES ---
History of Present Illness Resident Creating Document: LD DUTTA RESIDENT History of Present Illness Leydi Lynn is a 79-year-old female came to the ED chief complaints of dizziness, generalized weakness, inability to sleep and states that she feels tired after waking up since 2 weeks. Patient also reported shortness of breath, feeling anxious, palpitations. Patient states that she is allergic to dog dander and takes Allergic shots. Her last bowel movement was 3 days ago. Patient states that she lives alone, social service consult was placed. Patient also states that she feels dizzy when getting up from sitting position, we will check orthostatic vitals. Patient states that she uses CPAP machine at home, takes Benadryl, Zyrtec for allergies. Patient is admitted for further management. Past medical history: hypertension, hyperlipidemia, arthritis, GERD Past surgical history: Right hip surgery, right knee replacement, hysterectomy Family History: reviewed noncontributory Social history: Lives alone, denies smoking, drinking, drug use OBGYN history: Postmenopausal status post hysterectomy, no relevant pathology contributory with the admission PCP: Dr. Watson Review of Systems Constitutional: Yes: Weakness, Other (Dizziness); No: Fever, Chills, Sweats, Malaise Eyes: No: Pain, Vision change, Conjunctivae inflammation, Eyelid inflammation, Other, Redness ENT: No: Ear pain, Ear discharge, Nose pain, Nose discharge, Nose congestion, Mouth pain, Mouth swelling, Throat pain, Throat swelling, Other Respiratory: Shortness of breath; No: Cough, Dry, SOB with excertion, Wheezing, Hemoptysis, Pleuritic Pain, Sputum, Wheezing, Other Cardiovascular: No: Chest Pain, Palpitations, Orthopnea, Paroxysmal Noc. Dyspnea, Edema, Lt Headedness, Other Gastrointestinal: No: Nausea, Vomiting, Abdominal Pain, Diarrhea, Constipation, Melena, Hematochezia, Other Genitourinary: No Dysuria, No Frequency, No Incontinence, No Hematuria, No Retention, No Other Musculoskeletal: No: other, neck pain, shoulder pain, arm pain, back pain, hand pain, leg pain, foot pain Skin: No: Rash, Lesions, Jaundice, Bruising, Other Neurological: No: Weakness, Numbness, Incoordination, Change in speech, Confusion, Seizures, Other Allergies: Coded Allergies: Penicillins (Verified Allergy, Unknown, 11/23/20) Exam Vital Signs Vital Signs Date Time Temp Pulse Resp B/P (MAP) Pulse Ox O2 Delivery O2 Flow Rate FiO2 02/08/25 00:36 97.6 56 18 164/91 (115) 98 97.6 02/07/25 20:00 Room Air* 0 21 Exam General: Patient alert and oriented in person, place and time. Patient following commands. In mild distress HEENT: Normocephalic, atraumatic, moist mucous membranes, Respiratory/pulmonary: Clear lungs bilaterally, vesicular murmurs present in almost all lung ochoa, no associated crackles or wheezes. Cardiovascular: Normal heart sounds S1 and S2 with no associated murmurs Abdomen: Abdomen nondistended, there is no pain to palpation in any of the abdominal quadrants, no palpable masses. Extremities: There is no peripheral edema present at the lower extremities. Peripheral Pulses: 3+ Radial (R). 3+ Radial (L). 3+ Dorsalis pedis (R). 3+ Dorsalis pedis(L) Skin: No rashes or pruritus, there is no sacral edema present at this time. Neurological: Intact cranial nerves with no focal neurologic deficits Psych, mood: Anxious mood Labs/Xrays Labs Test 02/07/25 16:08 02/07/25 15:24 02/07/25 14:46 Range/Units Troponin I High Sensitivity < 3 L </=34 ng/L Urine Color Yellow Yellow Urine Clarity Clear Clear Urine pH 5.5 5.0-9.0 Urine Specific Edwards 1.023 1.001-1.035 Urine Protein Negative Negative Urine Ketones Trace Negative Urine Blood Negative Negative /uL Urine Nitrite Negative Negative Urine Bilirubin Negative Negative Urine Urobilinogen Normal Negative mg/dL Urine Leukocyte Esterase Negative Negative /uL Urine RBC 3 0 - 4 /hpf Urine Microscopic WBC 2 0-5 /HPF Urine Squamous Epithelial Cells Few <5 /hpf Urine Bacteria None seen None Seen /hpf Urine Mucus Few None Seen Urine Glucose Normal Normal mg/dL White Blood Count 5.5 4.4-10.8 10^3/uL Red Blood Count 5.04 4.0-5.20 10^6/uL Hemoglobin 15.5 12.2-16.2 g/dL Hematocrit 45.7 36.0-46.0 % Mean Corpuscular Volume 90.5 80.0-100.0 fL Mean Corpuscular Hemoglobin 30.7 28.0-32.0 pg Mean Corpuscular Hemoglobin Concent 34.0 32.0-36.0 g/dL Red Cell Distribution Width 13.0 11.8-14.3 % Platelet Count 310 140-450 10^3/uL Mean Platelet Volume 8.1 6.9-10.8 fL Neutrophils (%) (Auto) 66.6 37.0-80.0 % Lymphocytes (%) (Auto) 24.3 10.0-50.0 % Monocytes (%) (Auto) 7.4 0.0-12.0 % Eosinophils (%) (Auto) 0.8 0.0-7.0 % Basophils (%) (Auto) 0.9 0.0-2.0 % Neutrophils # (Auto) 3.7 1.6-8.6 10 ^3/uL Lymphocytes # (Auto) 1.3 0.4-5.4 10 ^3/uL Monocytes # (Auto) 0.4 0-1.3 10 ^3/uL Eosinophils # (Auto) 0 0-0.8 10 ^3/uL Basophils # (Auto) 0.1 0-0.2 10 ^3/uL Nucleated Red Blood Cells 0.1 % Sodium Level 139 136-145 mmol/L Potassium Level 3.9 3.5-5.1 mmol/L Chloride Level 102 98-107 mmol/L Carbon Dioxide Level 29 20-31 mmol/L Anion Gap 8 5-15 Blood Urea Nitrogen 11 9-23 mg/dL Creatinine 0.78 0.550-1.02 mg/dL Glomerular Filtration Rate Calc 77 >90 mL/min BUN/Creatinine Ratio 14.1 10.0-20.0 Serum Glucose 98 74-106 mg/dL Calcium Level 10.1 8.7-10.4 mg/dL SEPSIS Sepsis Screen Date sepsis recognized/suspect: Feb 07, 2025 Time Sepsis recognized/suspect: 1317 Recent Procedure: No On Antibiotic Therapy: No Respiratory Rate >20: No Heart Rate >90: No Temp<36 C (96.8 F) or >38.3 C: No SBP <90 or MAP <65 mmHG: No New Acute Mental Status Change: No Is the patient on CPAP, BIPAP,: No Physician Orders Admit (02/07/25 22:51) * Mend Worker Consult (02/08/25 ) Vital Signs Date Time Temp Pulse Resp B/P (MAP) Pulse Ox O2 Delivery O2 Flow Rate FiO2 02/08/25 00:36 97.6 56 18 164/91 (115) 98 97.6 02/07/25 20:00 81 18 98 Room Air* 0 21 02/07/25 19:47 97.5 78 16 142/86 (104) 95 97.5 Medications Medications Dose Ordered Sig/Irene Route Start Time Stop Time Status Last Admin Dose Admin Acetaminophen 650 mg ONCE ONCE PO 02/07/25 17:30 02/07/25 17:52 DC 02/07/25 18:20 650 MG Acetaminophen 650 mg ONCE ONCE PO 02/08/25 01:30 02/08/25 01:34 DC 02/08/25 01:50 650 MG Docusate Sodium 100 mg ONCE ONCE PO 02/08/25 01:30 02/08/25 01:34 DC 02/08/25 01:49 100 MG Assessment/Plan Assessment/Plan #Presyncope / recurrent Dizziness persistent lightheadedness: Workup in progress , CXR unremarkable, check for cardiac arrhythmia, intravascular volume the patient, autonomic dysfunction. extensive workup pending with TSH, B12, folate, orthostatic blood pressure, common viral infection , echo, ESR CRP, differential blood pressure. Fall precautions. #Generalized weakness likely due to deconditioning secondary to viral URI: Broad differential includes myopathy, hypothyroidism, alert depression, electrolyte disturbances, nutritional deficiency. Extensive workup pending with PT evaluation before safe discharge. #History of osteoarthritis: supportive treatment, check for PT for gait stability. #Essential HTN uncontrolled: Cardiac diet, 2 g salt restriction, lifestyle modification, home lisinopril 20 mg to continue when orthostasis ruled out. #Bradycardia, asymptomatic: TSH, EKG and Cardiac workup to rule out need of PPM, high degree AV block. 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 Avoid ppi, unnecessary antibiotic coverage. #Chronic constipation: As needed lactulose/ high-fiber diet/ Colace #Known GERD/PUD: At home with aerosol 20 mg cap daily, famotidine to continue. Avoid PPI due to high risk of C diff recurrence. #Known dyslipidemia: Rosuvastatin 10 mg at home, continue. #History of recurrent conjunctivitis: Active conjunctivitis not noted. Consider home medication to continue. 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 Watson Barriers to discharge: Active workup and management ongoing. Patient lives by herself, before discharge needs a PT evaluation/safety evaluation as high-risk of fall. Case discussed with Dr. Mcpherson. Code status: Full code. Complex patient care discussion needed total 33 minutes. Plan discussed with: Patient My Orders Orders - LD DUTTA RESIDENT Procedure Category Date Status Time Admit ADMIT 02/07/25 Transmitted 22:51 Date of Service: Feb 08, 2025 Billing Provider: RAJIV MCPHERSON MD Common Visit Codes: [id number] INP/OBS CARE (HIGH) Secondary Visit Codes: [id number] CARE PLAN 30 MINUTES LD DUTTA Feb 08, 2025 02:48 QI MILES Feb 08, 2025 07:24
[2025-02-08] MEDS: PANTOPRAZOLE 40 MG TAB PO SCH (06:00)
[2025-02-08] MEDS ORDERED: FAMOTIDINE 20 MG TAB PO ONE (07:15)
[2025-02-08] MEDS: LACTATED RINGER'S 1,000 ML IV SCH (07:45)
[2025-02-08 10:01] LABS: INR 1.08 (0.9-1.15); Partial Thromboplastin Time 30.2 SEC (24.5-34.5); Prothrombin Time 11.4 sec (9.3-11.8)
[2025-02-08] MEDS: LISINOPRIL 5 MG TAB PO SCH (10:14)
[2025-02-08 10:15] LABS: Alanine Aminotransferase 17.0 U/L (7-40); Alanine Aminotransferase 19 U/L (7-40); Albumin 4.3 g/dL (3.2-4.8); Albumin 4.4 g/dL (3.2-4.8); Alkaline Phosphatase 63 U/L (46-116); Alkaline Phosphatase 63.0 U/L (46-116); Anion Gap 10 (5-15); BUN/Creatinine Ratio 18.7 (10.0-20.0); Blood Urea Nitrogen 14 mg/dL (9-23); Calcium 9.1 mg/dL (8.7-10.4); Carbon Dioxide 28 mmol/L (20-31); Chloride 103 mmol/L (98-107); Potassium 3.5 mmol/L (3.5-5.1); Sodium 141 mmol/L (136-145); Total Protein 6.3 g/dL (5.7-8.2); Total Protein 6.7 g/dL (5.7-8.2)
[2025-02-08] MEDS: LACTATED RINGER'S 500 ML IV ONE (10:15)
[2025-02-08 10:19] LABS: Bilirubin, Direct 0.4 mg/dL (<0.3); Bilirubin, Total 1.3 mg/dL (0.2-1.0); Glucose 108 mg/dL (74-106)
[2025-02-08 12:31] LABS: Amphetamine Screen, Urine Neg (NEGATIVE); Barbiturate Scree,Urine Neg (NEGATIVE); Benzodiazephine Screen, Urine Neg (NEGATIVE); Cannabinoid Screen, Urine Neg (NEGATIVE); Cocaine Screen, Urine Neg (NEGATIVE); Opiate Scree,Urine Neg (NEGATIVE); Phencyclidine Screen, Urine Neg (NEGATIVE)
--- NOTE | 2025-02-08 18:00 | DVHPN2 ---
Progress Note Date Seen: Feb 08, 2025 Medical Necessity Reason Pt with a Central, PICC or Fol: No Subjective Patient reports: No new complaints (Regular sliding feeling weak) Objective vital signs Vital Sign Date Time Temp Pulse Resp B/P (MAP) Pulse Ox O2 Delivery O2 Flow Rate FiO2 02/08/25 16:45 98.3 66 17 122/70 (87) 94 98.3 02/08/25 08:00 Room Air* 0 21 Total Intake and Output 02/07/25 02/07/25 02/08/25 15:00 23:00 07:00 Intake Total 125 ml Balance 125 ml medications Current Medications Medications Dose Ordered Sig/Irene Route Start Time Stop Time Status Last Admin Dose Admin Lisinopril 10 mg DAILY PO 02/08/25 10:00 02/08/25 10:14 10 MG Famotidine 20 mg DAILY PO 02/09/25 10:00 Lactated Ringer's 1,000 ml @ 75 mls/hr [id number] IV 02/08/25 07:45 02/08/25 07:45 75 MLS/HR Examination: GENERAL:Abnormal (Patient says she is feeling more Dr. Waking up. Patient has been few lb), HEENT:Normal, NECK:Normal, LUNGS:Normal, CVS:Normal, ABDOMEN:Normal, MSK:Normal, SKIN:Normal, NEURO:Normal, :Normal laboratory and microbiology Laboratory Tests 02/08/25 09:23 02/07/25 14:46 Test 02/08/25 09:23 Range/Units Serum Glucose 108 H 74-106 mg/dL Problem List/Assessment/Plan Problem List/Assessment/Plan #Presyncope / recurrent Dizziness persistent lightheadedness: #Generalized weakness likely due to deconditioning secondary to viral URI: Order CPAP at night heart pressure see if fatigue resolving in a.m. rate and BiPAP pressure 5-7 #History of osteoarthritis: #Essential HTN uncontrolled: Cardiac diet, 2 g salt restriction, lifestyle modification, home lisinopril 20 mg to continue when orthostasis ruled out. #Bradycardia, asymptomatic: 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 Avoid ppi, unnecessary antibiotic coverage. #Chronic constipation: As needed lactulose/ high-fiber diet/ Colace #Known GERD/PUD: At home with aerosol 20 mg cap daily, famotidine to continue. Avoid PPI due to high risk of C diff recurrence. #Known dyslipidemia: Rosuvastatin 10 mg at home, continue. #History of recurrent conjunctivitis: Active conjunctivitis not noted. Consider home medication to continue. #Surgical history of hysterectomy, Right hip surgery, right knee replacement #Known allergy to penicillin: Avoid penicillin and related group of medications Plan discussed with: Patient My Orders My Orders Orders - ANANT CISNEROS MD Procedure Category Date Status Time Bipap/Cpap For Sleep RT 02/08/25 Logged Apnea 17:49 Complete Blood Count LAB 02/08/25 Logged 17:50 Comprehensive LAB 02/08/25 Logged Metabolic Panel 17:50 Date of Service: Feb 08, 2025 Billing Provider: ANANT CISNEROS MD Common Visit Codes: [id number] INP/OBS CARE(MOD) ANANT CISNEROS MD Feb 08, 2025 17:59
[2025-02-08 20:16] LABS: Hematocrit 37.9 % (36.0-46.0); Hemoglobin 13.2 g/dL (12.2-16.2); Mean Corpuscular Hemoglobin 31.3 pg (28.0-32.0); Mean Corpuscular Volume 89.8 fL (80.0-100.0); Nucleated Red Blood Cells % 0.1 %
[2025-02-08 20:31] LABS: Alanine Aminotransferase 14 U/L (7-40); Albumin 4.1 g/dL (3.2-4.8); Alkaline Phosphatase 55 U/L (46-116); Anion Gap 10 (5-15); BUN/Creatinine Ratio 26.7 (10.0-20.0); Bilirubin, Total 0.8 mg/dL (0.2-1.0); Blood Urea Nitrogen 20 mg/dL (9-23); Carbon Dioxide 26 mmol/L (20-31); Chloride 105 mmol/L (98-107); Potassium 4.1 mmol/L (3.5-5.1); Sodium 141 mmol/L (136-145); Total Protein 5.7 g/dL (5.7-8.2)
[2025-02-08 20:35] LABS: Calcium 8.5 mg/dL (8.7-10.4); Glucose 136 mg/dL (74-106)
[2025-02-08] MEDS ORDERED: ATORVASTATIN 20 MG TAB PO SCH (22:00)
[2025-02-08] MEDS: ACETAMINOPHEN 325 MG TAB PO PRN (23:20)
[2025-02-08] MEDS: MELATONIN 5 MG TAB PO ONE (23:20)
[2025-02-09] VITALS (9 sets, daily range): BP systolic 120–145; BP diastolic 72–81; PULSE 50–62; RESP 17–20; TEMP 97.4–98.1; O2SAT 95–96
[2025-02-09] MEDS: FAMOTIDINE 20 MG TAB PO SCH (10:05)
--- NOTE | 2025-02-09 15:28 | DVHPN2 ---
Progress Note Date Seen: Feb 09, 2025 Medical Necessity Reason Pt with a Central, PICC or Fol: No Subjective Patient reports: Feels better Review of Systems: HEENT:Normal, CVS:Normal, RESPIRATORY:Normal, GI:Normal, :Normal, MSK:Normal, NEURO:Normal Objective vital signs Vital Sign Date Time Temp Pulse Resp B/P (MAP) Pulse Ox O2 Delivery O2 Flow Rate FiO2 02/09/25 13:00 98.0 62 18 145/81 (102) 95 98.0 02/09/25 09:11 Room Air 02/09/25 09:11 0 21 Total Intake and Output 02/08/25 02/08/25 02/09/25 15:00 23:00 07:00 Intake Total 615 ml 982 ml 1206 ml Balance 615 ml 982 ml 1206 ml medications Current Medications Medications Dose Ordered Sig/Irene Route Start Time Stop Time Status Last Admin Dose Admin Lisinopril 10 mg DAILY PO 02/08/25 10:00 02/09/25 10:09 10 MG Famotidine 20 mg DAILY PO 02/09/25 10:00 02/09/25 10:05 20 MG Lactated Ringer's 1,000 ml @ 75 mls/hr [id number] IV 02/08/25 07:45 02/08/25 07:45 75 MLS/HR Acetaminophen 650 mg Q6HPRN PRN PO 02/08/25 22:30 02/08/25 23:20 650 MG Examination: GENERAL:Normal, HEENT:Normal, NECK:Normal, LUNGS:Normal, CVS:Normal, ABDOMEN:Normal, MSK:Normal, SKIN:Normal, NEURO:Normal, :Normal laboratory and microbiology Laboratory Tests 02/08/25 19:59 Test 02/08/25 19:59 Range/Units Serum Glucose 136 H 74-106 mg/dL Problem List/Assessment/Plan Problem List/Assessment/Plan #Presyncope / recurrent Dizziness persistent lightheadedness: #Generalized weakness likely due to deconditioning secondary to viral URI: Patient was unable to tolerate BiPAP at night. Patient is feeling better. Vital signs shows orthostatic hypotension. Started NS 75 for one tender fluids Echo is done. 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 Avoid ppi, unnecessary antibiotic coverage. #Chronic constipation: As needed lactulose/ high-fiber diet/ Colace #Known GERD/PUD: At home with aerosol 20 mg cap daily, famotidine to continue. Avoid PPI due to high risk of C diff recurrence. #Known dyslipidemia: Rosuvastatin 10 mg at home, continue. #History of recurrent conjunctivitis: Active conjunctivitis not noted. #Surgical history of hysterectomy, Right hip surgery, right knee replacement #Known allergy to penicillin: Avoid penicillin and related group of medications Plan discussed with: Patient My Orders My Orders Orders - ANANT CISNEROS MD Procedure Category Date Status Time Bipap/Cpap For Sleep RT 02/08/25 Logged Apnea 17:49 Melatonin (Melatonin) PHA 02/09/25 In Process 22:00 * Cardiology Consult CONS 02/09/25 Transmitted 10:55 Orthostatic Vital ORDERS 02/09/25 Transmitted Signs 10:55 Date of Service: Feb 09, 2025 Billing Provider: ANANT CISNEROS MD Common Visit Codes: [id number] INP/OBS CARE(MOD) ANANT CISNEROS MD Feb 09, 2025 15:28
[2025-02-09] MEDS: SODIUM CHLORIDE 0.9% 1,000 ML IV SCH (15:30)
--- NOTE | 2025-02-09 18:18 | DVHSR ---
APPROVED REPORT EXAM: LIMITED Two-dimensional and M-mode echocardiogram with Doppler and color Doppler. Blood Pressure: 128/79 mmHg INDICATION Rule out structural heart disease RISK FACTORS Height: 5' 6", Weight: 150 DIMENSIONS LVDd4.3 (3.8-5.7cm)LA (2D)3.5 (1.9-4.0cm)Aortic Root2.8 (2.0-3.7cm) LVDs3.0 (2.5-4.0cm)LA (MM) (1.9-4.0cm)Aortic Cusp Exc1.5 (1.5-2.0cm) EF (%) 58.0 (55-70%)Rt. Atrium3.9 (1.9-4.0cm)Asc. Aorta cm IVSd0.8 (0.7-1.1cm)RV (D) (1.8-2.4cm) PWd1.1 (0.7-1.1cm) Mitral Valve MitralMitral Stenosis E wave0.80m/sMV Mean GR.mmHg A wave1.20m/sMV Peak GR.mmHg E/A ratio0.72D MVAcm2 Aortic Valve Aortic ValveAortic Stenosis V11.00m/Maikel Mean GR.8mmHg V22.10m/Maikel Peak GR.19mmHg LVOT Diameter2.1 (1.8-2.4cm)Doppler AVA1.65cm2 AI P 1/2 Hyel2512.48ms Tricuspid Valve TR Velocity2.40m/s [id number] Other Information Quality : Technically LimitedRhythm : Technically limited study due to body habitus, patient very irritable. Conclusion MILD LVH AND MILD LV DIASTOLIC DYSFUNCTION LV EF IS 65% NORMAL RV FUNCTION NORMAL VALVES NO EFFUSION
[2025-02-09] MEDS: MELATONIN 5 MG TAB PO ONE (21:49)
--- NOTE | 2025-02-09 23:37 | DVHINCON2 ---
Date of service: Feb 09, 2025 Referring Physician Gene Reason for Consultation Presyncope, bradycardia History of Present Illness This is a 79-year-old female with a PMH of Arthritis, High Lipids, HTN who presents to the ED with complaints of dizziness on 02/07. Patient also reported generalized body weakness, fatigue and lightheadedness for two weeks. Patient states that her symptoms worsen when standing. Chest x-ray showed NAD. EKG is NSR at 84. Troponin was negative. Patient was admitted to the hospital. I am asked to consult on this patient. Family History: Patient reports no known family medical history. Allergies: Coded Allergies: Penicillins (Verified Allergy, Unknown, 11/23/20) Home Meds Active Scripts Ondansetron (Zofran) 4 Mg Tab, 4 MG PO TID PRN for 3 Days, #9 TAB Prov:TONI ANGELES MD 08/25/21 Reported Medications Clindamycin HCl (Clindamycin Hydrochloride) 150 Mg Cap, 3 PO TID 11/23/20 Sulfamethoxazole W/Trimethopri (Smz-Tmp Ds) 1 Tab Tab 11/23/20 Omeprazole (Omeprazole Dr) 20 Mg Cap, 1 CAP PO DAILYPRN 11/23/20 Rosuvastatin Calcium (Rosuvastatin Calcium) 10 Mg Tab, 1 TAB PO DAILYPRN 11/23/20 Amlodipine Besylate (Amlodipine Besylate) 2.5 Mg Tab, 1 TAB PO DAILYPRN 11/23/20 Lisinopril (Lisinopril) 10 Mg Tab, 1 TAB PO DAILYPRN 11/23/20 Alendronate Sodium (Alendronate Sodium) 70 Mg Tab, 1 TAB PO QWEEKLY 11/23/20 Current Medications Current Medications Medications (Trade) Dose Ordered Sig/Irene Route PRN Reason Start Time Stop Time Status Last Admin Atorvastatin Calcium (Lipitor) 40 mg HS PO 02/08/25 22:00 02/08/25 07:33 DC Famotidine (Pepcid Tablet) 20 mg DAILY PO 02/09/25 10:00 02/09/25 10:05 Acetaminophen (Tylenol Tablet) 650 mg Q6HPRN PRN PO PAIN SCALE 1-3 OR TEMP>100.4 02/08/25 22:30 02/08/25 23:20 Sodium Chloride 1,000 ml @ 75 mls/hr [id number] IV 02/09/25 15:30 Review of Systems Constitutional: reports: weakness; denies: chills, diaphoresis, fatigue, fever, malaise, sweats, others EENTM: denies: blurred vision, double vision, ear bleeding, ear discharge, ear drainage, ear pain, ear ringing, eye pain, eye redness, hearing loss, mouth pain, mouth swelling, nasal discharge, nose bleeding, nose congestion, nose pain, photophobia, tearing, throat pain, throat swelling, voice changes, others Respiratory: denies: cough, hemoptysis, orthopnea, SOB at rest, shortness of breath, SOB with excertion, stridor, wheezing, others Cardiovascular: denies: chest pain, dizzy spells, diaphoresis, Dyspnea on exertion, edema, irregular heart beat, left arm pain, lightheadedness, palpitations, PND, syncope, others Gastrointestinal: denies: abdomen distended, abdominal pain, blood streaked bowels, constipated, diarrhea, dysphagia, difficulty swallowing, hematemesis, melena, nausea, poor appetite, poor fluid intake, rectal bleeding, rectal pain, vomiting, others Genitourinary: denies: abnormal vagina bleeding, burning, dyspareunia, dysuria, flank pain, frequency, hematuria, incontinence, pain, , vagina discharge, urgency, others Neurological: reports: dizziness; denies: fainting, headache, left sided numbness, left sided weakness, numbness, paresthesia, pre-existing deficit, right sided numbness, right sided weakness, seizure, speech problems, tingling, tremors, weakness, others Musculoskeletal: denies: back pain, gout, joint pain, joint swelling, muscle pain, muscle stiffness, neck pain, others Integumetry: denies: bruises, change in color, change in hair/nails, dryness, laceration, lesions, lumps, rash, wounds, others Allergic/Immunocompromised: denies: Difficulty Healing, Frequent Infections, Hives, Itching, others Hematologic/Lymphatic: denies: anemia, blood clots, easy bleeding, easy bruising, swollen glands, others Endocrine: denies: excessive hunger, excessive sweating, excessive thirst, excessive urination, flushing, intolerance to cold, intolerance to heat, unexplained weight gain, unexplained weight loss, others Psychiatric: denies: anxiety, bipolar disorder, depression, hopeless, panic disorder, schizophrenia, sleepless, suicidal, others All Other Systems: Reviewed and Negative Vital Signs Vital Signs Date Time Temp Pulse Resp B/P (MAP) Pulse Ox O2 Delivery O2 Flow Rate FiO2 02/09/25 17:00 97.9 56 20 142/76 (98) 96 97.9 02/09/25 09:11 Room Air 02/09/25 09:11 0 21 Physical Exam GENERAL: Alert and oriented x 3. No acute distress. EYES: PERRL, EOMI. Anicteric. HENT: Moist mucous membranes. LUNGS: Clear to auscultation bilaterally. CARDIOVASCULAR: Regular rate and rhythm. ABDOMEN: Soft, nontender and nondistended. EXTREMITIES: No edema. NEUROLOGIC: No focal neurological deficits. SKIN: Warm, dry. Labs/Diagnostic Data Labs Test 02/08/25 19:59 02/08/25 11:00 02/08/25 09:23 02/08/25 08:50 Range/Units White Blood Count 5.9 4.4-10.8 10^3/uL Red Blood Count 4.22 4.0-5.20 10^6/uL Hemoglobin 13.2 12.2-16.2 g/dL Hematocrit 37.9 # 36.0-46.0 % Mean Corpuscular Volume 89.8 80.0-100.0 fL Mean Corpuscular Hemoglobin 31.3 28.0-32.0 pg Mean Corpuscular Hemoglobin Concent 34.8 32.0-36.0 g/dL Red Cell Distribution Width 13.2 11.8-14.3 % Platelet Count 268 140-450 10^3/uL Mean Platelet Volume 8.2 6.9-10.8 fL Neutrophils (%) (Auto) 62.8 37.0-80.0 % Lymphocytes (%) (Auto) 25.3 10.0-50.0 % Monocytes (%) (Auto) 8.8 0.0-12.0 % Eosinophils (%) (Auto) 2.1 0.0-7.0 % Basophils (%) (Auto) 1.0 0.0-2.0 % Neutrophils # (Auto) 3.7 1.6-8.6 10 ^3/uL Lymphocytes # (Auto) 1.5 0.4-5.4 10 ^3/uL Monocytes # (Auto) 0.5 0-1.3 10 ^3/uL Eosinophils # (Auto) 0.1 0-0.8 10 ^3/uL Basophils # (Auto) 0.1 0-0.2 10 ^3/uL Nucleated Red Blood Cells 0.1 % Sodium Level 141 136-145 mmol/L Potassium Level 4.1 3.5-5.1 mmol/L Chloride Level 105 98-107 mmol/L Carbon Dioxide Level 26 20-31 mmol/L Anion Gap 10 5-15 Blood Urea Nitrogen 20 9-23 mg/dL Creatinine 0.75 0.550-1.02 mg/dL Glomerular Filtration Rate Calc 81 >90 mL/min BUN/Creatinine Ratio 26.7 H 10.0-20.0 Serum Glucose 136 H 74-106 mg/dL Calcium Level 8.5 L 8.7-10.4 mg/dL Total Bilirubin 0.8 0.2-1.0 mg/dL Aspartate Amino Transferase (AST) 20 13-40 U/L Alanine Aminotransferase (ALT) 14 7-40 U/L Alkaline Phosphatase 55 46-116 U/L Total Protein 5.7 5.7-8.2 g/dL Albumin 4.1 3.2-4.8 g/dL Urine Opiates Screen Neg NEGATIVE Urine Fentanyl Screen Neg NEGATIVE Urine Barbiturates Screen Neg NEGATIVE Urine Phencyclidine Screen Neg NEGATIVE Urine Amphetamines Screen Neg NEGATIVE Urine Benzodiazepines Screen Neg NEGATIVE Urine Cocaine Screen Neg NEGATIVE Urine Cannabinoids Screen Neg NEGATIVE Prothrombin Time 11.4 9.3-11.8 sec Prothrombin Time INR 1.08 0.9-1.15 Activated Partial Thromboplast Time 30.2 24.5-34.5 SEC Direct Bilirubin 0.4 H <0.3 mg/dL B-Type Natriuretic Peptide 11.24 0-100 pg/mL Thyroid Stimulating Hormone (TSH) 1.05 0.55-4.78 uIU/mL Test 02/07/25 16:08 02/07/25 15:24 Range/Units Troponin I High Sensitivity < 3 L </=34 ng/L Urine Color Yellow Yellow Urine Clarity Clear Clear Urine pH 5.5 5.0-9.0 Urine Specific [place] 1.023 1.001-1.035 Urine Protein Negative Negative Urine Ketones Trace Negative Urine Blood Negative Negative /uL Urine Nitrite Negative Negative Urine Bilirubin Negative Negative Urine Urobilinogen Normal Negative mg/dL Urine Leukocyte Esterase Negative Negative /uL Urine RBC 3 0 - 4 /hpf Urine Microscopic WBC 2 0-5 /HPF Urine Squamous Epithelial Cells Few <5 /hpf Urine Bacteria None seen None Seen /hpf Urine Mucus Few None Seen Urine Glucose Normal Normal mg/dL Assessment Presyncope. Generalized weakness. History of osteoarthritis. Essential HTN uncontrolled. Bradycardia, asymptomatic. 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 Chronic constipation. Dyslipidemia. Plan/Recommendation I agree with your ongoing assessment and care of plan. Echocardiogram. Lisinopril. Tylenol for pain management. Additional plan as per the hospital course. A total of 45 minutes was spent reviewing the patient record, examining the patient, making a diagnostic and therapeutic plan, discussing this plan with medical personnel, following up on diagnostic studies and following the patient for clinical stability excluding any and all procedures. At least 50% of this time was spent in direct, [id number] contact. Plan discussed with: Patient ZAC MOTA MD Feb 09, 2025 19:07
[2025-02-10] VITALS (7 sets, daily range): BP systolic 129–158; BP diastolic 74–86; PULSE 51–63; RESP 16–19; TEMP 97.1–98.9; O2SAT 95–97
[2025-02-10 07:14] LABS: Hematocrit 39.6 % (36.0-46.0); Hemoglobin 13.8 g/dL (12.2-16.2); Mean Corpuscular Hemoglobin 31.3 pg (28.0-32.0); Mean Corpuscular Volume 89.9 fL (80.0-100.0); Nucleated Red Blood Cells % 0.1 %
[2025-02-10 07:23] LABS: Alanine Aminotransferase 13 U/L (7-40); Albumin 4.1 g/dL (3.2-4.8); Alkaline Phosphatase 56 U/L (46-116); Anion Gap 10 (5-15); BUN/Creatinine Ratio 12.9 (10.0-20.0); Calcium 9.2 mg/dL (8.7-10.4); Carbon Dioxide 27 mmol/L (20-31); Chloride 106 mmol/L (98-107); Glucose 88 mg/dL (74-106); Potassium 3.7 mmol/L (3.5-5.1); Sodium 143 mmol/L (136-145); Total Protein 6.3 g/dL (5.7-8.2)
[2025-02-10 07:24] LABS: Bilirubin, Total 0.9 mg/dL (0.2-1.0)
[2025-02-10 07:29] LABS: Blood Urea Nitrogen 8 mg/dL (9-23)
--- NOTE | 2025-02-10 08:21 | ECG ---
[facility] Test Date: 2025-02-08 Test Time: 10:28:44 Pat Name: NAYANA CALDERÓN Department: Respiratoy Room: [facility] A Gender: F [place]: : 1945 Requested By: LD DUTTA Order Number: [id number] Reading MD: Jermaine Marion Measurements Intervals [place] Rate: 59 P: 57 CO: 172 QRS: 47 QRSD: 87 T: 41 QT: 436 QTc: 432 Interpretive Statements Sinus rhythm Low voltage, precordial leads Baseline wander in lead(s) V5 Electronically Signed On 02-10-2025 10:13:36 PDT by Jermaine Marion Please click the below link to view image of tracing.
--- NOTE | 2025-02-10 18:08 | DVHPN2 ---
Subjective Seen and examined at bedside, feeling better. Will DC in AM Changes from previous H/P or p: No Changes Eyes: No Pain, No Vision change, No Conjunctivae inflammation, No Eyelid inflammation, No Other, No Redness ENT: No Ear pain, No Ear discharge, No Nose pain, No Nose discharge, No Nose congestion, No Mouth pain, No Mouth swelling, No Throat pain, No Throat swelling, No Other Cardiovascular: No Chest Pain, No Palpitations, No Orthopnea, No Paroxysmal Noc. Dyspnea, No Edema, No Lt Headedness, No Other Respiratory: No Cough, No Dry, No Shortness of breath, No SOB with excertion, No Wheezing, No Hemoptysis, No Pleuritic Pain, No Sputum, No Other Gastrointestinal: No Nausea, No Vomiting, No Abdominal Pain, No Diarrhea, No Constipation, No Melena, No Hematochezia, No Other Genitourinary: No Dysuria, No Frequency, No Incontinence, No Hematuria, No Retention, No Other Musculoskeletal: No other, No neck pain, No shoulder pain, No arm pain, No back pain, No hand pain, No leg pain, No foot pain Skin: No Rash, No Lesions, No Jaundice, No Bruising, No Other Objective Vitals Vital Signs Date Time Temp Pulse Resp B/P (MAP) Pulse Ox O2 Delivery O2 Flow Rate FiO2 02/10/25 16:54 97.7 63 18 145/77 (99) 97 97.7 02/10/25 08:00 Room Air* 0 21 Intake/Output Intake and Output 02/10/25 07:00 Intake Total 2620 ml Balance 2620 ml Intake Oral 2620 ml # Voids 7 General Appearance: Alert, Oriented X3, Cooperative HEENT: Atraumatic Lungs: Clear to auscultation Cardiovascular: Regular rate, Normal S1, Normal S2 Abdomen: Normal bowel sounds, Soft Rectal: Deferred Psych/Mental Status: Mental status NL Medications Current Medications Medications Dose Ordered Sig/Irene Route Start Time Stop Time Status Last Admin Dose Admin Lisinopril 10 mg DAILY PO 02/08/25 10:00 02/10/25 09:44 10 MG Famotidine 20 mg DAILY PO 02/09/25 10:00 02/10/25 09:42 20 MG Acetaminophen 650 mg Q6HPRN PRN PO 02/08/25 22:30 02/09/25 22:57 650 MG Sodium Chloride 1,000 ml @ 75 mls/hr [id number] IV 02/09/25 15:30 02/10/25 04:50 75 MLS/HR Laboratory Results Laboratory Tests 02/10/25 06:23 Chemistry Test 02/10/25 06:23 Albumin 4.1 g/dL (3.2-4.8) Calcium Level 9.2 mg/dL (8.7-10.4) Total Protein 6.3 g/dL (5.7-8.2) LFT Test 02/10/25 06:23 Alanine Aminotransferase (ALT) 13 U/L (7-40) Alkaline Phosphatase 56 U/L (46-116) Aspartate Amino Transferase (AST) 21 U/L (13-40) Total Bilirubin 0.9 mg/dL (0.2-1.0) Urinalysis Test 02/07/25 15:24 Urine Color Yellow (Yellow) Urine Clarity Clear (Clear) Urine pH 5.5 (5.0-9.0) Urine Specific [place] 1.023 (1.001-1.035) Urine Protein Negative (Negative) Urine Ketones Trace (Negative) Urine Blood Negative /uL (Negative) Urine Nitrite Negative (Negative) Urine Bilirubin Negative (Negative) Urine Urobilinogen Normal mg/dL (Negative) Urine Leukocyte Esterase Negative /uL (Negative) Urine RBC 3 /hpf (0 - 4) Urine Microscopic WBC 2 /HPF (0-5) Urine Squamous Epithelial Cells Few /hpf (<5) Urine Bacteria None seen /hpf (None Seen) Urine Mucus Few (None Seen) Urine Glucose Normal mg/dL (Normal) Assessment/Plan Assessment/Plan #Presyncope due to autonomic imbalance? #Generalized weakness likely due to deconditioning secondary to viral URI: improved #History of osteoarthritis: #Essential HTN uncontrolled: Cardiac diet, 2 g salt restriction, lifestyle modification, home lisinopril 20 mg #Bradycardia, asymptomatic: resolved #Chronic constipation: As needed lactulose/ high-fiber diet/ Colace #Known GERD/PUD: At home with aerosol 20 mg cap daily, famotidine to continue. Avoid PPI due to high risk of C diff recurrence. #Known dyslipidemia: Rosuvastatin 10 mg at home, continue. #History of recurrent conjunctivitis: Active conjunctivitis not noted. #Surgical history of hysterectomy, Right hip surgery, right knee replacement #Known allergy to penicillin: Avoid penicillin and related group of medications Plan discussed with: Patient My Orders Orders - RAJIV STAFFORD MD Procedure Category Date Status Time Discontinue Tele CASTRO 02/10/25 Verified 18:05 Date of Service: Feb 10, 2025 Billing Provider: RAJIV STAFFORD MD Common Visit Codes: [id number] INP/OBS CARE(HIGH) RAJIV STAFFORD MD Feb 10, 2025 18:08
--- NOTE | 2025-02-10 23:31 | DVHPN2 ---
Progress Note - Dictate Date Seen: Feb 10, 2025 Medical Necessity Reason Pt with a Central, PICC or Fol: No Subjective Patient was seen and evaluated in follow up. No overnight events. Patient reports feeling better today. CBC and chemistry are unremarkable. Telemetry reviewed. vital signs Vital Sign Date Time Temp Pulse Resp B/P (MAP) Pulse Ox O2 Delivery O2 Flow Rate FiO2 02/10/25 16:54 97.7 63 18 145/77 (99) 97 97.7 02/10/25 08:00 Room Air* 0 21 Total Intake and Output 02/09/25 02/09/25 02/10/25 15:00 23:00 07:00 Intake Total 240 ml 2200 ml 180 ml Balance 240 ml 2200 ml 180 ml medications Current Medications Medications Dose Ordered Sig/Irene Route Start Time Stop Time Status Last Admin Dose Admin Lisinopril 10 mg DAILY PO 02/08/25 10:00 02/10/25 09:44 10 MG Famotidine 20 mg DAILY PO 02/09/25 10:00 02/10/25 09:42 20 MG Acetaminophen 650 mg Q6HPRN PRN PO 02/08/25 22:30 02/10/25 22:36 650 MG Sodium Chloride 1,000 ml @ 75 mls/hr [id number] IV 02/09/25 15:30 02/10/25 04:50 75 MLS/HR objective GENERAL: Alert and oriented x 3. No acute distress. EYES: PERRL, EOMI. Anicteric. HENT: Moist mucous membranes. LUNGS: Clear to auscultation bilaterally. CARDIOVASCULAR: Regular rate and rhythm. ABDOMEN: Soft, nontender and nondistended. EXTREMITIES: No edema. NEUROLOGIC: No focal neurological deficits. SKIN: Warm, dry. laboratory and microbiology Laboratory Tests 02/10/25 06:23 Test 02/10/25 06:23 Range/Units Serum Glucose 88 74-106 mg/dL Problem List Presyncope. Generalized weakness. History of osteoarthritis. Essential HTN uncontrolled. Bradycardia, asymptomatic. 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 Chronic constipation. Dyslipidemia. Assessment/Plan Continued all current supportive medical care. Echocardiogram. Lisinopril. Tylenol for pain management. Additional plan as per the hospital course. Plan discussed with: Patient ZAC MOTA MD Feb 10, 2025 23:31
[2025-02-11 05:00] VITALS: BP 120/78; PULSE 59; RESP 16; TEMP 97.9; O2SAT 96
[2025-02-11 08:39] VITALS: BP 131/81; PULSE 56; RESP 16; TEMP 97.5; O2SAT 98
[2025-02-11 12:47] VITALS: BP 123/76; PULSE 58; RESP 18; TEMP 98.1; O2SAT 98
--- NOTE | 2025-02-11 14:21 | DVHDS2 ---
Discharge Summary Date of Admission Feb 07, 2025 at 22:51 Date of Discharge: Feb 11, 2025 Admitting Diagnosis Presyncope Labs/Diagnostic Data: Laboratory Results Test 02/10/25 06:23 02/08/25 11:00 02/08/25 09:23 02/08/25 08:50 White Blood Count 4.6 10^3/uL (4.4-10.8) Red Blood Count 4.41 10^6/uL (4.0-5.20) Hemoglobin 13.8 g/dL (12.2-16.2) Hematocrit 39.6 % (36.0-46.0) Mean Corpuscular Volume 89.9 fL (80.0-100.0) Mean Corpuscular Hemoglobin 31.3 pg (28.0-32.0) Mean Corpuscular Hemoglobin Concent 34.9 g/dL (32.0-36.0) Red Cell Distribution Width 13.3 % (11.8-14.3) Platelet Count 262 10^3/uL (140-450) Mean Platelet Volume 8.4 fL (6.9-10.8) Neutrophils (%) (Auto) 62.4 % (37.0-80.0) Lymphocytes (%) (Auto) 25.1 % (10.0-50.0) Monocytes (%) (Auto) 8.5 % (0.0-12.0) Eosinophils (%) (Auto) 3.0 % (0.0-7.0) Basophils (%) (Auto) 1.0 % (0.0-2.0) Neutrophils # (Auto) 2.9 10 ^3/uL (1.6-8.6) Lymphocytes # (Auto) 1.2 10 ^3/uL (0.4-5.4) Monocytes # (Auto) 0.4 10 ^3/uL (0-1.3) Eosinophils # (Auto) 0.1 10 ^3/uL (0-0.8) Basophils # (Auto) 0 10 ^3/uL (0-0.2) Nucleated Red Blood Cells 0.1 % Sodium Level 143 mmol/L (136-145) Potassium Level 3.7 mmol/L (3.5-5.1) Chloride Level 106 mmol/L (98-107) Carbon Dioxide Level 27 mmol/L (20-31) Anion Gap 10 (5-15) Blood Urea Nitrogen 8 mg/dL (9-23) Creatinine 0.62 mg/dL (0.550-1.02) Glomerular Filtration Rate Calc 91 mL/min (>90) BUN/Creatinine Ratio 12.9 (10.0-20.0) Serum Glucose 88 mg/dL (74-106) Calcium Level 9.2 mg/dL (8.7-10.4) Total Bilirubin 0.9 mg/dL (0.2-1.0) Aspartate Amino Transferase (AST) 21 U/L (13-40) Alanine Aminotransferase (ALT) 13 U/L (7-40) Alkaline Phosphatase 56 U/L (46-116) Total Protein 6.3 g/dL (5.7-8.2) Albumin 4.1 g/dL (3.2-4.8) Urine Opiates Screen Neg (NEGATIVE) Urine Fentanyl Screen Neg (NEGATIVE) Urine Barbiturates Screen Neg (NEGATIVE) Urine Phencyclidine Screen Neg (NEGATIVE) Urine Amphetamines Screen Neg (NEGATIVE) Urine Benzodiazepines Screen Neg (NEGATIVE) Urine Cocaine Screen Neg (NEGATIVE) Urine Cannabinoids Screen Neg (NEGATIVE) Prothrombin Time 11.4 sec (9.3-11.8) Prothrombin Time INR 1.08 (0.9-1.15) Activated Partial Thromboplast Time 30.2 SEC (24.5-34.5) Direct Bilirubin 0.4 mg/dL (<0.3) B-Type Natriuretic Peptide 11.24 pg/mL (0-100) Vitamin B12 Level 826 pg/mL (211-911) Folic Acid 23.81 ng/mL (>5.38) Thyroid Stimulating Hormone (TSH) 1.05 uIU/mL (0.55-4.78) Test 02/07/25 16:08 02/07/25 15:24 Troponin I High Sensitivity < 3 ng/L (</=34) Urine Color Yellow (Yellow) Urine Clarity Clear (Clear) Urine pH 5.5 (5.0-9.0) Urine Specific [place] 1.023 (1.001-1.035) Urine Protein Negative (Negative) Urine Ketones Trace (Negative) Urine Blood Negative /uL (Negative) Urine Nitrite Negative (Negative) Urine Bilirubin Negative (Negative) Urine Urobilinogen Normal mg/dL (Negative) Urine Leukocyte Esterase Negative /uL (Negative) Urine RBC 3 /hpf (0 - 4) Urine Microscopic WBC 2 /HPF (0-5) Urine Squamous Epithelial Cells Few /hpf (<5) Urine Bacteria None seen /hpf (None Seen) Urine Mucus Few (None Seen) Urine Glucose Normal mg/dL (Normal) Other Laboratory Tests 02/10/25 06:23 Brief Hx & Hospital Course: Leydi Lynn is a 79-year-old female came to the ED chief complaints of dizziness, generalized weakness, inability to sleep and states that she feels tired after waking up since 2 weeks. Patient also reported shortness of breath, feeling anxious, palpitations. Patients workup has been negative for any acute findings. Patient was being discharged yesterday, however patient requested to stay till today. Patient advised to monitor blood pressure at home and record readings to take to PCP office. Operations or Procedures EXAM: LIMITED Two-dimensional and M-mode echocardiogram with Doppler and color Doppler. Blood Pressure: 128/79 mmHg INDICATION Rule out structural heart disease RISK FACTORS Height: 5' 6", Weight: 150 DIMENSIONS LVDd 4.3 (3.8-5.7cm) LA (2D) 3.5 (1.9-4.0cm) Aortic Root 2.8 (2.0- 3.7cm) LVDs 3.0 (2.5-4.0cm) LA (MM) (1.9-4.0cm) Aortic Cusp Exc 1.5 (1.5- 2.0cm) EF (%) 58.0 (55-70%) Rt. Atrium 3.9 (1.9-4.0cm) Asc. Aorta cm IVSd 0.8 (0.7-1.1cm) RV (D) (1.8-2.4cm) PWd 1.1 (0.7-1.1cm) Mitral Valve Mitral Mitral Stenosis E wave 0.80m/s MV Mean GR. mmHg A wave 1.20m/s MV Peak GR. mmHg E/A ratio 0.7 2D MVA cm2 Aortic Valve Aortic Valve Aortic Stenosis V1 1.00m/s AO Mean GR. 8mmHg V2 2.10m/s AO Peak GR. 19mmHg LVOT Diameter 2.1 (1.8-2.4cm) Doppler ISABEL 1.65cm2 AI P 1/2 Time 1397.48ms Tricuspid Valve TR Velocity 2.40m/s RVSP 30mmHg Other Information Quality : Technically Limited Rhythm : Technically limited study due to body habitus, patient very irritable. Conclusion MILD LVH AND MILD LV DIASTOLIC DYSFUNCTION LV EF IS 65% NORMAL RV FUNCTION NORMAL VALVES NO EFFUSION Condition at Discharge: Stable Final Diagnosis/Problems List Presyncope Uncontrolled HTN Discharge Disposition: Home Discharge Instruct/Medications Diet: Cardiac 2g Na,low cholest Activity: No Restrictions, As Tolerated Follow Up/Referral: PCP Medications: Resume Home Meds Scheduled Alendronate Sodium (Alendronate Sodium), 1 TAB PO QWEEKLY, (Reported) Amlodipine Besylate (Amlodipine Besylate), 1 TAB PO DAILYPRN, (Reported) Clindamycin HCl (Clindamycin Hydrochloride), 3 PO TID, (Reported) Lisinopril (Lisinopril), 1 TAB PO DAILYPRN, (Reported) Omeprazole (Omeprazole Dr), 1 CAP PO DAILYPRN, (Reported) Rosuvastatin Calcium (Rosuvastatin Calcium), 1 TAB PO DAILYPRN, (Reported) Scheduled PRN Ondansetron (Zofran), 4 MG PO TID PRN Miscellaneous Medications Sulfamethoxazole W/Trimethopri (Smz-Tmp Ds), (Reported) Discharge Statement: "Patient was advised to return to the ER or call 911 if any headaches, dizziness, shortness of breath, chest pain, abdominal pain, bleeding, fevers, or worsening of medical condition. Patient was counseled about treatment plan, medications, possible side effects, patientverbalized understanding. All questions were answered to the best of my ability. This discharge took greater then 30 minutes in planning, reviewing documentation, counseling the patient, and discussing with other team members." ASSESSMENT ASSESSMENT Assessment Presyncope Date of Service: Feb 11, 2025 Billing Provider: RAJIV STAFFORD MD Common Visit Codes: 26545-AKW/OBS DISCH DAY >30min RAJIV STAFFORD MD Feb 11, 2025 14:21
--- NOTE | 2025-02-11 22:35 | DVHPN2 ---
Progress Note - Dictate Date Seen: Feb 11, 2025 Medical Necessity Reason Pt with a Central, PICC or Fol: No Subjective Patient was seen and evaluated in follow up. Echo shows an EF of 65%. Patient denies any cardiac symptoms. Patient is cardiac stable for discharge. Telemetry reviewed. vital signs Vital Sign Date Time Temp Pulse Resp B/P (MAP) Pulse Ox O2 Delivery O2 Flow Rate FiO2 02/11/25 12:47 98.1 58 18 123/76 (92) 98 98.1 02/11/25 08:00 Room Air* 0 21 Total Intake and Output 02/10/25 02/10/25 02/11/25 14:59 22:59 06:59 Intake Total 500 ml 300 ml Balance 500 ml 300 ml objective GENERAL: Alert and oriented x 3. No acute distress. EYES: PERRL, EOMI. Anicteric. HENT: Moist mucous membranes. LUNGS: Clear to auscultation bilaterally. CARDIOVASCULAR: Regular rate and rhythm. ABDOMEN: Soft, nontender and nondistended. EXTREMITIES: No edema. NEUROLOGIC: No focal neurological deficits. SKIN: Warm, dry. laboratory and microbiology Laboratory Tests 02/10/25 06:23 Test 02/10/25 06:23 Range/Units Serum Glucose 88 74-106 mg/dL Problem List Presyncope. Generalized weakness. History of osteoarthritis. Essential HTN uncontrolled. Bradycardia, asymptomatic. 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 Chronic constipation. Dyslipidemia. Assessment/Plan Continued all current supportive medical care. Lisinopril. Tylenol for pain management. Additional plan as per the hospital course. Plan discussed with: Patient ZAC MOTA MD Feb 11, 2025 22:35
== END 2025-02-11 17:03 | disposition home or self-care (01) | DRG 74 ==
LOC: ER 13:15 → OVERFLOW 22:51 → TELE-WESTW 23:51 → WEST WING 02-10 18:38 → UNDODISIN 02-11 14:37
PROVIDERS: ADMIT Internal Medicine; ATTEND Internal Medicine
PROC: 5A09357 Assistance with Respiratory Ventilation, Less than 24 Consecutive Hours, Continuous Positive Airway Pressure (ICD-10-PCS; principal; 2025-02-08)
DX: G90.89 Other disorders of autonomic nervous system (principal); J06.9 Acute upper respiratory infection, unspecified; K21.9 Gastro-esophageal reflux disease without esophagitis; K59.09 Other constipation; I10 Essential (primary) hypertension; E78.5 Hyperlipidemia, unspecified; Z96.651 Presence of right artificial knee joint; Z88.0 Allergy status to penicillin; Z79.899 Other long term (current) drug therapy; Z90.710 Acquired absence of both cervix and uterus; Z87.11 Personal history of peptic ulcer disease
CPT/HCPCS: 36415; 71045; 80048; 80053; 80076; 80307; 81001; 82607; 82746; 83880; 84443; 84484; 85025; 85610; 85730; 93005; 93306; 94660; 97110; 97116; 97163; 97530; G0378